=== PATIENT | male | born 1985 | race Caucasian/White ===

== ENCOUNTER 2018-03-24 15:22 | Emergency (ER) | payer OTHER ==
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
[2018-03-24] MEDS ORDERED: Bacitracin OINTMENT* 0.5% 0.5 oz TUBE TOPICAL ONE (18:21)
[2018-03-24 18:42] VITALS: BP 108/68
== END 2018-03-24 18:41 | disposition home or self-care (01) ==
LOC: ED 15:22
DX: M25.551 Pain in right hip (principal); S40.811A Abrasion of right upper arm, initial encounter; V89.2XXA Person injured in unspecified motor-vehicle accident, traffic, initial encounter; Y93.9 Activity, unspecified; Y92.9 Unspecified place or not applicable; R21 Rash and other nonspecific skin eruption; Z88.5 Allergy status to narcotic agent; F17.210 Nicotine dependence, cigarettes, uncomplicated
CPT/HCPCS: 99281

== ENCOUNTER 2018-07-20 12:40 | Emergency (ER) | payer OTHER ==
[2018-07-20] MEDS ORDERED: Cephalexin CAP* 500 MG PO ONE (14:24)
[2018-07-20 14:50] VITALS: BP 120/68
--- NOTE | 2018-07-21 06:48 | ED ---
Laceration/Wound HPI - HPI Summary HPI Summary: Patient is a 32-year-old male presenting to the ED with laceration from a puncture wound to the right dorsum of the hand measuring 0.6 cm in length. Patient states "I took a screw in the hand". Per patient he has what looks like a string hanging out of my hand and thinks it is a tendon. Took his own percocet 10/325 prior to coming. He states he had a tendon repair to the same hand from Dr. Esquivel 2 years ago. He states this is his tendon and would like to be referred back to Dr. Esquivel. Denies other sxs. Pain is 10/10 and worse with palpation. - History of Current Complaint Stated Complaint: HAND LAC, POSSIBLE TENDON OUT Time Seen by Provider: 07/20/18 12:47 Hx Obtained From: Patient Mechanism of Injury: Sharp/Blunt Trauma Onset/Duration: Sudden Onset Aggravating: Movement Alleviating: Compression Timing: Constant Onset Severity: Severe Current Severity: Severe Pain Intensity: 0 Pain Scale Used: 0-10 Numeric Associated Signs & Symptoms: Negative Related Hx: Dominant Hand (Right) - Allergy/Home Medications Allergies/Adverse Reactions: Allergies Allergy/AdvReac Type Severity Reaction Status Date / Time ketorolac [From Toradol] Allergy See Comment Verified 03/24/18 15:44 tramadol Allergy See Comment Verified 03/24/18 15:43 PMH/Surg Hx/FS Hx/Imm Hx Previously Healthy: Yes Endocrine/Hematology History: Denies: Hx Anticoagulant Therapy Cardiovascular History: Reports: Other Cardiovascular Problems/Disorders - Murmur Sensory History: Denies: Hx Contacts or Glasses, Hx Hearing Aid Opthamlomology History: Denies: Hx Contacts or Glasses Neurological History: Reports: Hx Headaches, Hx Migraine - NO PROBLEMS RECENTLY - DOES SELF HYPNOSIS - Surgical History Surgery Procedure, Year, and Place: RIGHT THUMB- LACERATION- [facility]- 3 YEARS. right hand tendon repair 2014 Hx Anesthesia Reactions: No - Immunization History Date of Tetanus Vaccine: "two years ago" Hx Pertussis Vaccination: No Immunizations Up to Date: Yes Infectious Disease History: No Infectious Disease History: Denies: Traveled Outside the [place] in Last 30 Days - Family History Known Family History: Positive: Hypertension Family History: No FHx of malignant hyperthermia. No FHx of anesthesia reaction - Social History Occupation: Unemployed Lives: With Family Alcohol Use: None Hx Substance Use: Yes Substance Use Type: Reports: Marijuana, Other Substance Use Comment - Amount & Last Used: MARIJUANA- DAILY "meth and salts every once in a while" Hx Tobacco Use: No Smoking Status (MU): Current Every Day Smoker Do You Chew or Dip Tobacco: Yes Amount Used/How Often: 1/2 PPD X 7 YEARS Have You Smoked in the Last Year: Yes Review of Systems Negative: Fever, Chills, Fatigue, Skin Diaphoresis Negative: Palpitations, Chest Pain Negative: Shortness Of Breath, Cough Genitourinary: Negative Positive: no symptoms reported, see HPI Positive: Arthralgia - right dorsal hand pain/puncture wound Positive: Other - .6cm irregular laceration Neurological: Negative Psychological: Normal All Other Systems Reviewed And Are Negative: Yes Physical Exam Triage Information Reviewed: Yes Vital Signs On Initial Exam: Initial Vitals Temp Pulse Resp BP Pulse Ox 99 F 89 16 120/60 98 07/20/18 12:45 07/20/18 12:45 07/20/18 12:45 07/20/18 12:45 07/20/18 12:45 Vital Signs Reviewed: Yes Appearance: Positive: Well-Appearing, Well-Nourished Skin: Positive: Warm, Skin Color Reflects Adequate Perfusion Head/Face: Positive: Normal Head/Face Inspection Eyes: Positive: EOMI, SEBASTIEN, Conjunctiva Clear Neck: Positive: Supple Respiratory/Lung Sounds: Positive: Clear to Auscultation, Breath Sounds Present Cardiovascular: Positive: RRR, Pulses are Symmetrical in both Upper and Lower Extremities Musculoskeletal: Positive: Pain @ - right hand laceration - .6cm in length Neurological: Positive: Sensory/Motor Intact, Speech Normal Psychiatric: Positive: Normal AVPU Assessment: Alert Procedures - Splinting Right Upper Extremity Hand-Made Type: orthoglass Splint: volar Pre-Proc Neuro Vasc Exam: normal Post-Proc Neuro Vasc Exam: normal - Laceration/Wound Repair 1 Location: upper extremity Description: Irregular Anesthesia: Local Length, Depth and Shape: .6cm length Betadine Prep?: No Laceration/Wound Explored: clean, no foreign body removed Debridement: minimal Suture Type: Prolene Number of Sutures: 3 Layer Closure?: No Sterile Dressing Applied?: Yes Diagnostics - Vital Signs Vital Signs Temp Pulse Resp BP Pulse Ox 07/20/18 14:49 98.5 F 92 16 120/68 96 12/27/18 12:45 99 F 89 16 120/60 98 - Laboratory Lab Statement: Any lab studies that have been ordered have been reviewed, and results considered in the medical decision making process. Laceration Repair Course/Dx - Course Course Of Treatment: During the course of treatment, the patient is evaluated for puncture wound to the right dorsum of the hand. Laceration measures 0.6 cm in length. He states there was a small white thread like material protruding out of the wound, stating this is a tendon. On physical examination, patient remains able to flex slightly, but states due to pain he is unable to flex all the way. Patient is able to extend without difficulty. He is requesting a referral to Dr. Mast as well as a splint for fear this may be his tendon. Timeout obtained. 3 Prolene sutures to the dorsum of the hand after copious irrigation with chlorhexidine and normal saline. Patient is also placed on antibiotics. Tetanus is up-to-date. Full R splint placed. NV intact pre-spint and post-splint. - Differential Dx Differental Diagnoses: Joint Infection, Laceration, Tendon Laceration, Other - laceration - Clinical Impression Provider Diagnoses: Laceration Discharge - Sign-Out/Discharge Documenting (check all that apply): Patient Departure - Discharge Plan Condition: Stable Disposition: HOME Prescriptions: Cephalexin CAP* [Keflex CAP*] 500 mg PO BID #10 cap MDD 2 HYDROcodone/ACETAMIN 5-325 MG* [[place] 5-325 TAB*] 1 tab PO Q8H PRN #6 tab MDD 3 PRN Reason: Pain Patient Education Materials: Laceration (ED) Referrals: Simón AMBROSE,Mohamud Boogie [Primary Care Provider] - Radha Esquivel MD [Medical Doctor] - Additional Instructions: Please follow up with Dr. Esquivel Keep hand in splint until follow up Keflex twice daily x 5 days - Billing Disposition and Condition Condition: STABLE Disposition: Home
== END 2018-07-20 14:49 | disposition home or self-care (01) ==
LOC: ED 12:40
DX: S61.411A Laceration without foreign body of right hand, initial encounter (principal); W26.8XXA Contact with other sharp object(s), not elsewhere classified, initial encounter; Y92.9 Unspecified place or not applicable; F17.210 Nicotine dependence, cigarettes, uncomplicated
CPT/HCPCS: 12001; 99282; A9270-GY

== ENCOUNTER 2018-10-01 23:58 | Emergency (ER) | payer OTHER ==
[2018-10-02 00:08] VITALS: BP 121/72
--- NOTE | 2018-10-02 00:42 | ED ---
Psychiatric Complaint - HPI Summary HPI Summary: The patient is a 33 year old male who is presenting to the [facility] escorted by the [place] police with a chief complaint of SI. The patient was brought in by the police after being pulled over while driving and caught with possession of marijuana. The interaction lasted 30 minutes before the patient was brought into the police car and driven to the station. The patient was overheard by the police that he was "frustrated" and wanted to . The police upon hearing this escorted to the patient to the [facility] under the suspicion that the patient may attempt to harm himself. The patient later stated at the [facility], that he was only sarcastically stating that to himself and denies SI and HI. He has no prior psychiatric history and currently is not on any medication. The pain is rated to be 0/10 in severity. The symptoms are aggravated with nothing and alleviate with nothing. - History Of Current Complaint Chief Complaint: EDMentalHealth Time Seen by Provider: 10/02/18 00:09 Hx Obtained From: Patient Aggravating Factor(s): Nothing Alleviating Factor(s): Nothing Associated Signs And Symptoms: Positive: Negative Related History: Negative For: Prior Psychiatric Issues Has Suicidal: Denies: Thoughts Has Homicidal: Denies: Thoughts - Allergies/Home Medications Allergies/Adverse Reactions: Allergies Allergy/AdvReac Type Severity Reaction Status Date / Time cyclobenzaprine Allergy See Comment Verified 10/02/18 00:02 [From Flexeril] ketorolac [From Toradol] Allergy See Comment Verified 10/02/18 00:02 tramadol Allergy See Comment Verified 10/02/18 00:02 PMH/Surg Hx/FS Hx/Imm Hx Endocrine/Hematology History: Denies: Hx Anticoagulant Therapy Cardiovascular History: Reports: Other Cardiovascular Problems/Disorders - Murmur Sensory History: Denies: Hx Contacts or Glasses, Hx Hearing Aid Opthamlomology History: Denies: Hx Contacts or Glasses Neurological History: Reports: Hx Headaches, Hx Migraine - NO PROBLEMS RECENTLY - DOES SELF HYPNOSIS - Surgical History Surgery Procedure, Year, and Place: RIGHT THUMB- LACERATION- [facility]- 3 YEARS. right hand tendon repair 2014 Hx Anesthesia Reactions: No - Immunization History Date of Tetanus Vaccine: "two years ago" Infectious Disease History: Denies: Traveled Outside the [place] in Last 30 Days - Family History Known Family History: Positive: Hypertension Family History: No FHx of malignant hyperthermia. No FHx of anesthesia reaction - Social History Alcohol Use: None Hx Substance Use: Yes Substance Use Type: Reports: Marijuana Substance Use Comment - Amount & Last Used: MARIJUANA- DAILY "meth and salts every once in a while" Hx Tobacco Use: No Smoking Status (MU): Current Every Day Smoker Amount Used/How Often: 1/2 PPD X 7 YEARS Have You Smoked in the Last Year: Yes Review of Systems Constitutional: Negative Eyes: Negative ENT: Negative Cardiovascular: Negative Respiratory: Negative Gastrointestinal: Negative Genitourinary: Negative Musculoskeletal: Negative Skin: Negative Neurological: Negative Psychological: Normal, Other - Negative SI and Negative HI All Other Systems Reviewed And Are Negative: Yes Physical Exam - Summary Physical Exam Summary: VITAL SIGNS: Reviewed. GENERAL: Patient is a well-developed and nourished (MALE) who is lying comfortable in the stretcher. Patient is not in any acute respiratory distress. HEAD AND FACE: No signs of trauma. No ecchymosis, hematomas or skull depressions. No sinus tenderness. EYES: PERRLA, EOMI x 2, No injected conjunctiva, no nystagmus. EARS: Hearing grossly intact. Ear canals and tympanic membranes are within normal limits. MOUTH: Oropharynx within normal limits. NECK: Supple, trachea is midline, no adenopathy, no JVD, no carotid bruit, no c- spine tenderness, neck with full ROM. CHEST: Symmetric, no tenderness at palpation LUNGS: Clear to auscultation bilaterally. No wheezing or crackles. CVS: Regular rate and rhythm, S1 and S2 present, no murmurs or gallops appreciated. ABDOMEN: Soft, non-tender. No signs of distention. No rebound no guarding, and no masses palpated. Bowel sounds are normal. EXTREMITIES: FROM in all major joints, no edema, no cyanosis or clubbing. NEURO: Alert and oriented x 3. No acute neurological deficits. Speech is normal and follows commands. SKIN: Dry and warm Triage Information Reviewed: Yes Vital Signs On Initial Exam: Initial Vitals Temp Pulse Resp BP Pulse Ox 97.3 F 96 17 121/72 99 10/02/18 00:02 10/02/18 00:02 10/02/18 00:02 10/02/18 00:02 10/02/18 00:02 Vital Signs Reviewed: Yes Diagnostics - Vital Signs Vital Signs Temp Pulse Resp BP Pulse Ox 10/02/18 00:15 97.3 F 96 16 121/72 99 10/02/18 00:02 97.3 F 96 17 121/72 99 - Laboratory Lab Statement: Any lab studies that have been ordered have been reviewed, and results considered in the medical decision making process. Course/Dx - Course Course Of Treatment: The patient is a 33 year old male who is presenting to the [facility] with a chief complaint of SI. The patient after being escorted by the police to the [facility] stated he does not have any SI or HI thoughts. The patient states he also has no prior psychiatric history and is not under any medication. Upon evaluating his physical exam and hearing his story, the patient will be dx with adjustment disorder and will be discharged home. The police have left the patient with his wallet and the patient is agreeable to this plan. - Differential Dx/Clinical Impression Provider Diagnosis: Adjustment disorder Discharge - Sign-Out/Discharge Documenting (check all that apply): Patient Departure - Discharge Home Patient Received Moderate/Deep Sedation with Procedure: No - Discharge Plan Condition: Stable Disposition: HOME Patient Education Materials: Mood Disorders (ED) Referrals: Siómn AMBROSE,Mohamud Boogie [Primary Care Provider] - Additional Instructions: RETURN TO THE EMERGENCY DEPARTMENT FOR CHANGING OR WORSENING SYMPTOMS. FOLLOW UP WITH PCP IN 1-2 DAYS. - Attestation Statements Document Initiated by Adrianeibe: Yes Documenting Scribe: Tony Ruiz Provider For Whom Adrianeibe is Documenting (Include Credential): Dr. Bong Tucker Scribgiselle Attestation: Tony Ramos scribed for Dr. Bong Tucker on 10/02/18 at 0046. Status of Scribe Document: Ready
== END 2018-10-02 00:20 | disposition home or self-care (01) ==
LOC: ED 23:58
DX: F43.20 Adjustment disorder, unspecified (principal); Z88.5 Allergy status to narcotic agent; Z88.8 Allergy status to other drugs, medicaments and biological substances; F17.200 Nicotine dependence, unspecified, uncomplicated
CPT/HCPCS: 99282

== ENCOUNTER 2019-04-17 20:24 | Emergency (ER) | payer SELFPAY ==
[2019-04-17] MEDS ORDERED: Morphine INJ* 10 MG/ML 1 ML CARPUJECT IV ONE (20:34)
[2019-04-17] MEDS ORDERED: Ondansetron INJ* 2 MG/ML VIAL IV ONE (20:34)
[2019-04-17] MEDS ORDERED: NS 0.9% 1000 ML** 1,000 ML IV ONE (20:34)
--- NOTE | 2019-04-17 20:45 | ED ---
Upper Extremity Pain - HPI Summary HPI Summary: 33 year old M [facility] by family members complains of worsening right-sided shoulder pain rated 10/10 in severity and worsening right- sided ecchymosis after falling approximately 20 feet from a roof and landing on to his right shoulder on Tuesday04/15/19 at 15:00. Patient denies LOC but is unsure. He states that he was lying on the ground for a couple of minutes. Patient additionally complains of a worsening "raspy, fluidy" cough that started after his fall. Patient reports insomnia and states that he wasn't able to sleep last night. Symptoms aggravated by coughing and breathing. Symptoms alleviated by ibuprofen, Tylenol, ice packs. - History of Current Complaint Chief Complaint: EDTraumaMultiple Stated Complaint: FELL OFF ROOF A COUPLE DAYS AGO PER PT Time Seen by Provider: 04/17/19 20:33 Hx Obtained From: Patient Mechanism Of Injury: Other - after falling approximately 20 feet from a roof and landing on to his right shoulder on Tuesday04/15/19 at 15:00 Onset/Duration: Started Days Ago - 2, Still Present Timing: Constant Severity Currently: Severe - 10/10 Pain Location: Shoulder - right Aggravating Factor(s): Other - coughing, breathing Alleviating Factor(s): Ice, Other - ibuprofen, Tylenol Associated Signs & Symptoms: Positive: Negative - LOC, Other - cough, insomnia - Allergies/Home Medications Allergies/Adverse Reactions: Allergies Allergy/AdvReac Type Severity Reaction Status Date / Time cyclobenzaprine Allergy See Comment Verified 04/17/19 21:03 [From Flexeril] ketorolac [From Toradol] Allergy See Comment Verified 04/17/19 21:03 tramadol Allergy See Comment Verified 04/17/19 21:03 PMH/Surg Hx/FS Hx/Imm Hx Cardiovascular History: Reports: Other Cardiovascular Problems/Disorders - Murmur Sensory History: Denies: Hx Contacts or Glasses, Hx Hearing Aid Opthamlomology History: Denies: Hx Contacts or Glasses Neurological History: Reports: Hx Headaches, Hx Migraine - NO PROBLEMS RECENTLY - DOES SELF HYPNOSIS - Surgical History Surgery Procedure, Year, and Place: RIGHT THUMB- LACERATION- [facility]- 3 YEARS. right hand tendon repair 2014 Hx Anesthesia Reactions: No - Immunization History Date of Tetanus Vaccine: "two years ago" Infectious Disease History: No Infectious Disease History: Denies: Traveled Outside the [place] in Last 30 Days - Family History Known Family History: Positive: Hypertension Family History: No FHx of malignant hyperthermia. No FHx of anesthesia reaction - Social History Alcohol Use: None Hx Substance Use: Yes Substance Use Type: Reports: Marijuana Substance Use Comment - Amount & Last Used: MARIJUANA- DAILY "meth and salts every once in a while" Hx Tobacco Use: Yes Smoking Status (MU): Current Every Day Smoker Amount Used/How Often: 1/2 PPD X 7 YEARS Have You Smoked in the Last Year: Yes Review of Systems - ROS Summary Review of Systems Summary: Home Medications Medication Instructions Recorded Confirmed Type NK [No Home Medications Reported] 04/17/19 04/17/19 History Positive: Cough Positive: Other - worsening right-sided shoulder pain Positive: Other - worsening right-sided ecchymosis Neurological: Negative - LOC Positive: Other - insomnia All Other Systems Reviewed And Are Negative: Yes Physical Exam - Summary Physical Exam Summary: General: Well-developed, Well-nourished MALE who appears to be in moderate discomfort at rest. HEENT: Normocephalic, Atraumatic. (-) Raccoons Eyes, (-) Battles Sign, (-) hemotympanum Eyes: Conjuctiva normal, PERRL. Ears: TMs within normal limits. Nares: (-) discharge, (-) erythema. Oropharynx: Clear, mucous membranes moist, (-) exudates. Neck: Soft, FROM, (-) lymphadenopathy, (-) thyromegaly, (-) JVD. Cardiovascular: Normal sinus rhythm, (-) murmur. Lungs: He has equal breath sounds bilaterally but poor air exchange and poor effort. Abdomen: Soft, non-tender, non-distended, (-) organomegaly, normal bowel sounds. Neuro: Alert and oriented x3, no focal deficits, Cooperative. Musculoskeletal: There are abrasions on his right shoulder. It looks like he has a deformity of AC joint in right shoulder. Skin: Warm, dry, (-) rash. Psychiatric: Mood normal, affect normal. GCS: 15 Triage Information Reviewed: Yes Vital Signs On Initial Exam: Initial Vitals Temp Pulse Resp BP Pulse Ox 98.6 F 91 22 148/79 99 04/17/19 20:25 04/17/19 20:25 04/17/19 20:25 04/17/19 20:25 04/17/19 20:25 Vital Signs Reviewed: Yes Diagnostics - Vital Signs Vital Signs Temp Pulse Resp BP Pulse Ox 04/17/19 20:25 98.6 F 91 22 148/79 99 - Laboratory Result Diagrams: 04/17/19 20:50 04/17/19 20:50 Lab Statement: Any lab studies that have been ordered have been reviewed, and results considered in the medical decision making process. - CT Brain CT Interpretation Completed By: Radiologist Summary of CT Findings: No acute intracranial findings. ED physician has reviewed this report. Cervical spine CT Interpretation Completed By: Radiologist Summary of CT Findings: 1. No cervical spine fracture. No subluxation. 2. Acute fracture of neck of the right third rib. See separate chest CT report. 3. Straightening of the normal cervical lordosis which may be positional or secondary to muscle spasm. ED physician has reviewed this report. Chest/Abdomen/Pelvis CT Interpretation Completed By: Radiologist Summary of CT Findings: 1. Acute nondisplaced fractures of the necks of the right third and fourth ribs with small amount of adjacent extrapleural/ paraspinal hematoma. 2. no pneumothorax. 3. 4 mm right upper lobe nodule. Per Fleischner Society Criteria, if the. patient has no risk factors such as smoking or cancer, no further workup is indicated. If they do have risk factors for cancer, followup CT is suggested in one year to assess stability. No acute findings in the abdomen or pelvis. ED physician has reviewed this report. Re-Evaluation - Re-Evaluation First Eval Re-Evaluation Time: 22:56 Change: Improved Comment: I have discussed results with the patient and his symptoms have resolved. Patient was advised to quit smoking. Discussed symptoms that warrant immediate return to ED. Course/Dx - Course Course Of Treatment: 33 year old M [facility] [place] by family members complains of worsening right-sided shoulder pain rated 10/10 in severity and worsening right-sided ecchymosis after falling approximately 20 feet from a roof and landing on to his right shoulder on Tuesday04/15/19 at 15: 00. Patient denies LOC but is unsure. He states that he was lying on the ground for a couple of minutes. Patient additionally complains of a worsening "raspy, fluidy" cough that started after his fall. Patient reports insomnia and states that he wasn't able to sleep last night. Symptoms aggravated by coughing and breathing. Symptoms alleviated by ibuprofen, Tylenol, ice packs. Physical exam findings: The patient is a MALE who appears to be in moderate discomfort at rest. There are abrasions on his right shoulder. It looks like he has a deformity of AC joint in right shoulder. He has equal breath sounds bilaterally but poor air exchange and poor effort. CT Brain shows, per radiologist: No acute intracranial findings. CT Cervical spine shows, per radiologist: 1. No cervical spine fracture. No subluxation. 2. Acute fracture of neck of the right third rib. See separate chest CT report. 3. Straightening of the normal cervical lordosis which may be positional or secondary to muscle spasm. CT Chest/Abdomen/Pelvis shows, per radiologist:1. Acute nondisplaced fractures of the necks of the right third and fourth ribs with small amount of adjacent extrapleural/paraspinal hematoma. 2. no pneumothorax. 3. 4 mm right upper lobe nodule. Per Fleischner Society Criteria, if the. patient has no risk factors such as smoking or cancer, no further workup is indicated. If they do have risk factors for cancer, followup CT is suggested in one year to assess stability. No acute findings in the abdomen or pelvis. Bloodwork results with no significant abnormalities except for Hgb 13.9, Hct 41, MCH 32, MPV 7.2, BUN/ Creatinine 21.4, glucose 117. Urinalysis results positive for opiates. Toxicology results with no significant abnormalities. In the ED course, the patient was given moprhine, Zofran 4 mg IV, normal saline 1 L IV. The patient feels better and would like to go home. Patient will be discharged home with prescription for Percocet and follow up from his primary care provider in 3 days. He was advised to quit smoking. Patient was offered an off work note but patient states he is already off work. Patient was instructed to return to Emergency Department for new or worsening symptoms. Patient understands and is agreeable to this plan. - Diagnoses Provider Diagnoses: Fall, Right rib fracture Discharge ED - Sign-Out/Discharge Documenting (check all that apply): Patient Departure - Discharge Patient Received Moderate/Deep Sedation with Procedure: No - Discharge Plan Condition: Stable Disposition: HOME Prescriptions: oxyCODONE/Acetamin 5/325 MG* [Percocet 5/325 TAB*] 2 tab PO Q6H PRN 4 Days #30 tab MDD 8 PRN Reason: severe pain Patient Education Materials: Rib Fracture (ED), Fall Prevention (ED) Referrals: Simón AMBROSE,Mohamud Boogie [Primary Care Provider] - 3 Days Additional Instructions: Please follow up with your primary care physician within 3 days. Please return to Emergency Department for any new or worsening symptoms. - Billing Disposition and Condition Condition: STABLE Disposition: Home - Attestation Statements Document Initiated by Adrianeibe: Yes Documenting Scribe: Gisela Chino Provider For Whom Katina is Documenting (Include Credential): Luana Schneider MD Scribe Attestation: Gisela Ramos, scribed for Luana Schneider MD on 04/18/19 at 0044. Scribe Documentation Reviewed: Yes Provider Attestation: The documentation as recorded by the adrianeibGisela desai accurately reflects the service I personally performed and the decisions made by me, Luana Schneider MD Status of Scribe Document: Viewed
[2019-04-17 20:58] LABS: Hematocrit 41 % (42-52); Hemoglobin 13.9 g/dL (14.0-18.0); Mean Corpuscular HGB Conc 34 g/dL (31-36); Mean Corpuscular Hemoglobin 32 pg (27-31); Mean Corpuscular Volume 93 fL (80-94); Mean Platelet Volume 7.2 fL (7.4-10.4); Platelet Count 236 10^3/uL (150-450); Red Blood Count 4.42 10^6 /uL (4.18-5.48); Red Cell Distribution Width 13 % (10-15); White Blood Count 8.8 10^3/uL (3.5-10.8)
[2019-04-17 21:01] LABS: ABS Basophils 0.1 10^3/ul (0-0.2); ABS Eosinophils 0.2 10^3/ul (0-0.6); ABS Lymphocytes 2.8 10^3/ul (1.0-4.8); ABS Monocytes 0.7 10^3/ul (0-0.8); ABS Neutrophils 5.2 10^3/ul (1.5-7.7); Eosinophil % 2.7 %; Lymphocyte % 31.5 %
[2019-04-17 21:03] LABS: INR 0.86 (0.82-1.09)
[2019-04-17 21:14] LABS: ALT 46 U/L (7-52); Albumin 4.2 g/dL (3.2-5.2); Albumin/Globulin Ratio 1.8 (1-3); Alkaline Phosphatase 61 U/L (34-104); BUN/Creatinine Ratio 21.4 (8-20); Blood Urea Nitrogen 18 mg/dL (6-24); CO2 Carbon Dioxide 28 mmol/L (22-32); Calcium 9.3 mg/dL (8.6-10.3); Chloride 104 mmol/L (101-111); EGFR Non-African American 106.6 (>60); Globulin 2.4 g/dL (2-4); Glucose 117 mg/dL (70-100); Sodium 137 mmol/L (135-145); Total Protein 6.6 g/dL (6.4-8.9)
[2019-04-17 21:19] LABS: Alcohol < 10 mg/dL (<10)
[2019-04-17 21:50] LABS: AST 33 U/L (13-39); Anion Gap 5 mmol/L (2-11); Potassium 4.2 mmol/L (3.5-5.0)
[2019-04-17] MEDS ORDERED: Iohexol 300* (CONTRAST) 10 ML SDV IV ONE (21:52)
[2019-04-17] MEDS ORDERED: Morphine 10 MG/ML VIAL (1 ml) IV ONE (22:00)
[2019-04-17 22:41] LABS: Urine Appearance Clear; Urine Bilirubin Negative (Negative); Urine Blood Negative (Negative); Urine Color Straw; Urine Glucose Negative (Negative); Urine Ketones Negative (Negative); Urine Nitrite Negative (Negative); Urine Protein Negative (Negative); Urine Specific Gravity 1.025 (1.010-1.030); Urine Urobilinogen Negative (Negative)
[2019-04-17 22:51] LABS: Urine Benzodiazepine Screen None Detected (None Detect); Urine Opiates Screen Presumptive Positive (None Detect)
[2019-04-17] MEDS ORDERED: oxyCODONE/Acetamin 5/325 MG* TAB PO ONE (23:06)
[2019-04-17 23:23] VITALS: BP 137/75
== END 2019-04-17 23:24 | disposition home or self-care (01) ==
LOC: ED 20:24
DX: S22.41XA Multiple fractures of ribs, right side, initial encounter for closed fracture (principal); W13.2XXA Fall from, out of or through roof, initial encounter; Y92.9 Unspecified place or not applicable; F17.200 Nicotine dependence, unspecified, uncomplicated; R91.1 Solitary pulmonary nodule; Z88.5 Allergy status to narcotic agent; Z88.8 Allergy status to other drugs, medicaments and biological substances
CPT/HCPCS: 36415; 70450; 71260; 72125; 74177; 80053; 80307; 80320; 81003; 85025; 85610; 96361; 96374; 96375; 96376; 99283; A9270-GY; G0480; J2270; J2405; Q9967